=== PATIENT | male | born 1960 | race Caucasian/White ===

== ENCOUNTER → 2024-06-30 15:13 | Outpatient (REF) | payer OTHER, SELFPAY | LOC: HWRAD 15:13 | DX: M54.6 Pain in thoracic spine (principal) | CPT/HCPCS: 72072; 72100 ==

== ENCOUNTER 2024-12-08 09:51 | Emergency (ER) | payer SELFPAY ==
[2024-12-08 09:53] VITALS: BP 150/91
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
[2024-12-08] MEDS: MOTRIN 600 MG PO (10:56)
[2024-12-08 12:49] VITALS: BP 131/80
== END 2024-12-08 12:51 | disposition home or self-care (01) ==
LOC: EMR 09:51
PROVIDERS: EMERGENCY PHYSICIAN Emergency Medicine; FAMILY PHYSICIAN Nurse Practitioner Family
DX: M54.2 Cervicalgia (principal); M54.50 Low back pain, unspecified; R10.9 Unspecified abdominal pain; V59.40XA Driver of pick-up truck or van injured in collision with unspecified motor vehicles in traffic accident, initial encounter; Y92.410 Unspecified street and highway as the place of occurrence of the external cause; K21.9 Gastro-esophageal reflux disease without esophagitis
CPT/HCPCS: 99283; 71046; 72040; 72100